=== PATIENT | female | born 1945 | race Caucasian/White ===

== ENCOUNTER 2017-06-10 12:19 | Emergency (ER) | payer OTHER ==
[~2017-06-10] VITALS: Ht 154.9 cm; Wt 56.8 kg
[~2017-06-10 12:19] MED LIST: ADVIL200 MG PO; AMBIEN10 MG PO; AMBIEN5 MG PO; AMLODIPINE BESY10 MG PO; AMLODIPINE BESYL5 MG PO; ASPIRIN EC325 MG PO; AUGMENTIN875 MG PO; BISAC-EVAC10 MG PR; BUMEX1 MG PO; CALCITRIOL0.25 MCG PO; CERTAVITE WITH1 EAC1 PO; CLOPIDOGREL75 MG PO; COLACE100 MG PO; DEMADEX20 MG PO; DIOVAN160 MG PO; DIOVAN320 MG PO; DOK PLUS TABLE1 EACH PO; DULCOLAX10 MG PR; DUONEB 2.5-0.5 M3 ML AEROSOL; ELAVIL50 MG PO; GLUCOPHAGE1000 MG PO; GLUCOPHAGE500 MG PO; HEPARIN SO5000 UNITS SC; HYDROMORPHONE HC4 MG PO; JANUVIA100 MG PO; KLOR-CON 1010 ME1 PO; KLOR-CON20 MEQ PO; LEVAQUIN500 MG PO; LEVAQUIN750 MG PO; LIDOCAINE700 MG TD; LITE COAT ASPI325 M1 PO; LOPRESSOR50 MG PO; LORAZEPAM0.5 MG PO; LOVENOX40 MG/0.4 SC; MECLIZINE HCL25 MG PO; MILK OF MAGN PO; NAPROSYN500 MG PO; NEURONTIN300 MG PO; NEURONTIN600 MG PO; NORVASC10 MG PO; NOVOLOG PE100 UNITS/ SC; ONE DAILY FOR1 EAC1 PO; ONE DAILY FOR1 EAC3 PO; ONE DAILY WOME0.4 MG PO; PANTOPRAZOLE SO40 MG PO; PAXIL10 MG PO; PAXIL20 MG PO; PLAVIX75 MG PO; POTASSIUM CHLO10 ME3 PO; PRAVACHOL40 MG PO; PRAVASTATIN SOD40 MG PO; PROTONIX20 MG PO; ROBITUSSIN AC,T10 ML PO; SANTYL30 GM TP; SENNA8.6 MG PO; TRAMADOL HCL50 MG PO; TYLENOL REGULA325 MG PO; ULTRAM50 MG PO; VITAMIN B12 100MCG PO; VITAMIN D31000 UNIT PO; ZANTAC150 MG PO; ZOFRAN4 MG PO
[2017-06-10 15:53] LABS: HEMATOCRIT 34.8 % (36.0-46.0); HEMOGLOBIN 12.2 G/DL (11.9-15.5); MCH 31.5 PG (29.0-34.0); MCHC 35.1 G/DL (30.0-36.0); MCV 89.9 FL (83-99); PLATELET COUNT 220 K/uL (156-360); RBC DIS.WIDTH-CV 12.5 % (11.8-14.6); RBC DIS.WIDTH-SD 40.8 % (39-53); RED BLOOD COUNT 3.87 M/uL (3.80-5.20); WHITE BLOOD COUNT 9.1 K/uL (4.1-10.2)
[2017-06-10 16:03] LABS: CHLORIDE 105 mEq/L (99-109); POTASSIUM 3.4 mEq/L (3.7-5.4); SODIUM 138 mEq/L (136-147)
[2017-06-10 16:05] LABS: GLUCOSE 228 mg/dL (70-99)
[2017-06-10 16:09] LABS: CREATININE 1.1 mg/dL (0.6-1.3); GFR ESTIMATE (CALCULATED) 52 mL/min/
[2017-06-10 16:10] LABS: UREA NITROGEN (BUN) 19 mg/dL (9-23)
[2017-06-10 16:17] LABS: TROP-I INTERPRETATION NEGATIVE; TROPONIN-I 0.03 ng/mL (0.0-0.30)
[2017-06-10 16:49] LABS: APPEARANCE CLEAR ((CLEAR)); BILIRUBIN NEGATIVE; BLOOD NEGATIVE; COLOR YELLOW ((YELLOW)); GLUCOSE (STRIP) 150; KETONES NEGATIVE; LEUKOCYTES NEGATIVE; NITRITE NEGATIVE; PROTEIN (STRIP) >=500; SPECIFIC GRAVITY 1.017 (1.000-1.030); UROBILINOGEN 0.2 MG/DL (0.2-1.0)
[2017-06-10 16:59] LABS: BACTERIA RARE /HPF; EPITHELIAL CELLS NONE SEEN /HPF; MUCUS TRACE /LPF; RED BLOOD CELLS 0-5 /HPF (0-5); UCUL ADDED? NO; WHITE BLOOD CELLS 0-5 /HPF (0-5)
[2017-06-10 17:13] LABS: THYROTROPIN (TSH) 1.2 MIU/L (0.4-5.5)
[2017-06-10] MEDS ORDERED: HYDROCHLOROTHIA25 MG PO (17:33)
[2017-06-10 18:33] VITALS: BP 166/80
== END 2017-06-10 18:50 | disposition home or self-care (01) ==
LOC: EME 12:19
PROVIDERS: Physician Assistant
DX: I10 Essential (primary) hypertension (principal); F41.9 Anxiety disorder, unspecified; E11.40 Type 2 diabetes mellitus with diabetic neuropathy, unspecified; F32.9 Major depressive disorder, single episode, unspecified; Z79.02 Long term (current) use of antithrombotics/antiplatelets; Z86.73 Personal history of transient ischemic attack (TIA), and cerebral infarction without residual deficits; Z88.8 Allergy status to other drugs, medicaments and biological substances
CPT/HCPCS: 80048; 81003; 82948; 84443; 84484; 85027; 93005; 99281; 99285